=== PATIENT | female | born 1970 | race Caucasian/White ===

== ENCOUNTER 2016-06-02 19:16 | Observation (INO) | payer BC ==
--- NOTE | 2016-06-02 20:20 | EDM.PDOC ---
ED HISTORY OF PRESENT ILLNESS - General Chief Complaint: Syncope Stated Complaint: SYNCOPE WITH IRREGULAR HEART BEAT Time Seen by Provider: 06/02/16 20:19 Source: Reports: Patient, Family History Limitations: Reports: No limitations - History of Present Illness INITIAL COMMENTS - FREE TEXT/NARRATIVE: Both yesterday and todaY THE PT HAS FELT LIKE SHE IS GOING TO PASS OUT AND AT THE SAME TIME SHE FEELS LIKE SHE HAS ALOT OF HEART IRREGULARITIES. Timing/Duration: Reports: Day(s):, Getting worse Severity: moderate Location, General: Reports: chest, other (PT FEELS LIKE SHE IS GOING TO PASS OUT. ) Associated Symptoms: Reports: syncope, other (PT IS HAVING EPISODES OF NEAR SYNCOPE. 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: Neurological History: Reports: Concussion - Infectious Disease History Infectious Disease History: Reports: Chicken pox - Past Surgical History HEENT Surgical History: Reports: Naso-sinus surgery Cardiovascular Surgical History: Reports: None GI Surgical History: Reports: Cholecystectomy Female Surgical History: Reports: Hysterectomy, Tubal ligation, Other (see below) Other Female Surgeries/Procedures: salpinoectomy Social & Family History - Tobacco Use Smoking Status *Q: Current Every Day Smoker Years of Tobacco use: 24 Packs/Tins Daily: 0.5 - Caffeine Use Caffeine Use: Reports: Coffee, Soda - Recreational Drug Use Recreational Drug Use: No ED ROS GENERAL - Review of Systems Review Of Systems: See Below Constitutional: Reports: no symptoms HEENT: Reports: No symptoms Respiratory: Reports: no symptoms Cardiovascular: Reports: Syncope, Other (PT FEELS LIKE HER HEART IS QUITE IRREGULAR. ) Endocrine: Reports: no symptoms GI/Abdominal: Reports: No symptoms : Reports: no symptoms Skin: Reports: no symptoms Neurological: Reports: no symptoms ED EXAM, GENERAL - Physical Exam Exam: See Below Free Text/Narrative:: pT ARRIVED WITH A HISTORY FOR THE PAST 2 DAYS OF NEAR SYNCOPE. sHE ALSO FEELS LIKE HER HEART IS MORE IRRWEGULAR. Exam Limited By: No limitations General Appearance: alert Ears: normal TMs Nose: normal inspection Throat/Mouth: Normal inspection Head: atraumatic Neck: normal inspection Respiratory/Chest: no respiratory distress Cardiovascular: other ( IRREGULAR WITH FREQUENT ECTOPICS. ) GI/Abdominal: soft, non tender, other ( WOUNDS LOOK GREAT. ABDOMAN IS SOFT. ) Rectal (Female) Exam: Deferred Back Exam: normal inspection Extremities: normal inspection Neurological: alert, oriented, normal cognition Course - Vital Signs Last Recorded V/S: Last Vital Signs Temp 35.9 C 06/03/16 16:03 Pulse 58 L 06/03/16 16:03 Resp 16 06/03/16 16:03 BP 124/49 L 06/03/16 16:03 Pulse Ox 100 06/03/16 16:03 Orthostatic Blood Pressure [ 136/81 Standing] Orthostatic Blood Pressure [ 144/89 Sitting] Orthostatic Blood Pressure [ 145/92 Supine] - Orders/Labs/Meds Orders: Active Orders 24 hr Category Date Time Status EKG 12 Lead [EK] Routine Ther 06/02/16 20:18 Stop Req Medication Orders Acetaminophen/Hydrocodone Bitart ([place] 325-5 Mg) 2 tab PO Q4H PRN PRN Reason: Pain (moderate 4-6) Albuterol (Proventil Neb Soln) 2.5 mg NEB Q4H PRN PRN Reason: Shortness Of Breath/wheezing Atenolol (Tenormin) 25 mg PO DAILY [facility] Last Admin: 06/03/16 08:25 Dose: 25 mg Docusate Sodium (Colace) 100 mg PO BID PRN PRN Reason: Constipation Lorazepam (Ativan) 1 mg IV Q6H PRN PRN Reason: Nausea/Vomiting Nicotine (Habitrol) 14 mg TRDERM DAILY [facility] Last Admin: 06/03/16 10:29 Dose: Not Given Admin: 06/02/16 23:32 Dose: 14 mg Ondansetron HCl (Zofran Odt) 4 mg PO Q6H PRN PRN Reason: Nausea able to take PO Zolpidem Tartrate (Ambien) 5 mg PO BEDTIME PRN PRN Reason: Sleep Labs: Laboratory Tests 06/02/16 06/02/16 06/02/16 Range/Units 20:33 20:33 20:33 WBC 10.2 (4.5-11.0) K/uL RBC 4.83 (3.30-5.50) M/uL Hgb 14.1 D (12.0-15.0) g/dL Hct 42.8 (36.0-48.0) % MCV 89 (80-98) fL MCH 29 (27-31) pg MCHC 33 (32-36) % Plt Count 204 (150-400) K/uL Neut % (Auto) 58 (36-66) % Lymph % (Auto) 26 (24-44) % [place] % (Auto) 9 H (2-6) % Eos % (Auto) 5 H (2-4) % Baso % (Auto) 2 H (0-1) % Sodium 142 (140-148) mmol/L Potassium 3.9 (3.6-5.2) mmol/L Chloride 104 (100-108) mmol/L Carbon Dioxide 28 (21-32) mmol/L Anion Gap 9.9 (5.0-14.0) mmol/L BUN 13 (7-18) mg/dL Creatinine 0.8 (0.6-1.0) mg/dL Est Cr Clr Drug Dosing 78.23 mL/min Estimated GFR (MDRD) > 60 (>60) Glucose 94 (74-106) mg/dL Calcium 8.5 (8.5-10.1) mg/dL Magnesium (1.8-2.4) mg/dL Total Bilirubin 0.3 (0.2-1.0) mg/dL AST 14 L (15-37) U/L ALT 33 (12-78) U/L Alkaline Phosphatase 52 (46-116) U/L Creatine Kinase 38 (26-192) U/L Troponin I 0.113 H* (0.000-0.056) ng/mL Total Protein 7.0 (6.4-8.2) g/dL Albumin 3.6 (3.4-5.0) g/dL Globulin 3.4 (2.3-3.5) g/dL Albumin/Globulin Ratio 1.1 L (1.2-2.2) Urine Color Urine Appearance Urine pH (4.5-8.0) Ur Specific [place] (1.008-1.030) Urine Protein (NEGATIVE) mg/dL Urine Glucose (UA) (NEGATIVE) mg/dL Urine Ketones (NEGATIVE) mg/dL Urine Occult Blood (NEGATIVE) Urine Nitrite (NEGATIVE) Urine Bilirubin (NEGATIVE) Urine Urobilinogen (NORMAL) mg/dL Ur Leukocyte Esterase (NEGATIVE) Urine RBC (0-5) Urine WBC (0-5) Ur Epithelial Cells Amorphous Sediment Urine Bacteria Urine Mucus 06/02/16 06/02/16 Range/Units 20:33 20:54 WBC (4.5-11.0) K/uL RBC (3.30-5.50) M/uL Hgb (12.0-15.0) g/dL Hct (36.0-48.0) % MCV (80-98) fL MCH (27-31) pg MCHC (32-36) % Plt Count (150-400) K/uL Neut % (Auto) (36-66) % Lymph % (Auto) (24-44) % [place] % (Auto) (2-6) % Eos % (Auto) (2-4) % Baso % (Auto) (0-1) % Sodium (140-148) mmol/L Potassium (3.6-5.2) mmol/L Chloride (100-108) mmol/L Carbon Dioxide (21-32) mmol/L Anion Gap (5.0-14.0) mmol/L BUN (7-18) mg/dL Creatinine (0.6-1.0) mg/dL Est Cr Clr Drug Dosing mL/min Estimated GFR (MDRD) (>60) Glucose (74-106) mg/dL Calcium (8.5-10.1) mg/dL Magnesium 1.8 (1.8-2.4) mg/dL Total Bilirubin (0.2-1.0) mg/dL AST (15-37) U/L ALT (12-78) U/L Alkaline Phosphatase (46-116) U/L Creatine Kinase (26-192) U/L Troponin I (0.000-0.056) ng/mL Total Protein (6.4-8.2) g/dL Albumin (3.4-5.0) g/dL Globulin (2.3-3.5) g/dL Albumin/Globulin Ratio (1.2-2.2) Urine Color Yellow Urine Appearance Clear Urine pH 6.0 (4.5-8.0) Ur Specific [place] 1.020 (1.008-1.030) Urine Protein Negative (NEGATIVE) mg/dL Urine Glucose (UA) Normal (NEGATIVE) mg/dL Urine Ketones Negative (NEGATIVE) mg/dL Urine Occult Blood Negative (NEGATIVE) Urine Nitrite Negative (NEGATIVE) Urine Bilirubin Negative (NEGATIVE) Urine Urobilinogen Normal (NORMAL) mg/dL Ur Leukocyte Esterase Negative (NEGATIVE) Urine RBC Not seen (0-5) Urine WBC 0-5 (0-5) Ur Epithelial Cells Moderate Amorphous Sediment Not seen Urine Bacteria Few Urine Mucus Few Meds: Medications Generic Name Dose Route Start Last Admin Trade Name Freq PRN Reason Stop Dose Admin Acetaminophen/Hydrocodone Bitart 2 tab 06/02/16 22:58 [place] 325-5 Mg PO Q4H PRN Pain (moderate 4-6) Albuterol 2.5 mg 06/02/16 22:58 Proventil Neb Soln NEB Q4H PRN Shortness Of Breath/wheezing Atenolol 25 mg 06/03/16 09:00 06/03/16 08:25 Tenormin PO 25 mg DAILY MALAIKA Administration Docusate Sodium 100 mg 06/02/16 22:58 Colace PO BID PRN Constipation Lorazepam 1 mg 06/02/16 22:58 Ativan IV Q6H PRN Nausea/Vomiting Nicotine 14 mg 06/02/16 22:58 06/03/16 10:29 Habitrol TRDERM Not Given DAILY MALAIKA Ondansetron HCl 4 mg 06/02/16 22:58 Zofran Odt PO Q6H PRN Nausea able to take PO Zolpidem Tartrate 5 mg 06/02/16 22:58 Ambien PO BEDTIME PRN Sleep Discontinued Medications Generic Name Dose Route Start Last Admin Trade Name Freq PRN Reason Stop Dose Admin Sodium Chloride 1,000 mls @ 125 mls/hr 06/02/16 22:58 06/03/16 08:15 Normal Saline IV 125 mls/hr ASDIRECTED MALAIKA Administration - Re-Assessments/Exams Free Text/Narrative Re-Assessment/Exam: 06/03/16 18:29 pt was found to have a markedly elevated tropon . This was discussed with Dr artis and he admitted her to follow the trops. Departure - Departure Time of Disposition: 16:10 Disposition: Admitted As Inpatient 64 Clinical Impression: Syncope - My Orders Last 24 Hours: My Active Orders 06/02/16 20:18 EKG 12 Lead [EK] Routine - Assessment/Plan Last 24 Hours: My Active Orders 06/02/16 20:18 EKG 12 Lead [EK] Routine
--- NOTE | 2016-06-02 22:25 | PCM.HP ---
H&P History of Present Illness - General Date of Service: 06/02/16 Admit Problem/Dx: Admission Diagnosis/Problem Admission Diagnosis/Problem Near syncope Source of Information: Patient, RN notes reviewed History Limitations: Reports: No limitations - History of Present Illness Initial Comments - Free Text/Narative: near syncope; this is a 45-year-old female presents emergency room with concerns of near fainting at home. She reports yesterday she felt like her heart was fluttering, mild chest pain, felt lightheaded and near fainting. This resolved with rest. She felt better and rest the day. This evening after her evening meal became nauseous again and near fainting. She felt her pulse was 2 beats and skipped a few beats than 4 beats and skipped beats, sweaty, no chest pain or shortness of breath. She did experience nausea with each one of these events without emesis. Labs do show elevated troponin, no other abnormalities noted, EKG obtained. Consulted with internal medicine hospitalist, will plan to admit to hospital observation, serial troponins every 6 hours, telemetry, continue with close observation. Discuss plan of care with Mrs. Burgos who is agreeable to plan of care. Reports no recent febrile illness Post hysterectomy05/21/16, reports no bleeding, discharge, no complications thus far. Primary care provider Dr. Chacon, [place], [place]. Duration of Symptoms: Reports: Day(s):, Recurring Location: Reports: chest, generalized (Near syncopal events x2) Quality: Reports: Same as previous episode Improves with: Reports: Rest Worsens with: Reports: None Associated Symptoms: Reports: nausea/vomiting, syncope, weakness denies pain Pain Score (Numeric/FACES): 0 - Related Data Allergies/Adverse Reactions: Allergies Allergy/AdvReac Type Severity Reaction Status Date / Time aspartame Allergy Headache Verified 06/02/16 19:34 latex Allergy Redness Verified 06/02/16 19:34 MAGANA Allergy Respiratory Uncoded 06/02/16 19:34 Distress Home Medications: Home Meds Atenolol [Atenolol] 25 mg PO DAILY 06/02/16 [History] Cholecalciferol (Vitamin D3) [Vitamin D] 5,000 units PO DAILY 06/02/16 [History] Past Medical History HEENT History: Reports: Impaired vision Cardiovascular History: Reports: Heart murmur, Hypertension 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: Neurological History: Reports: Concussion - Infectious Disease History Infectious Disease History: Reports: Chicken pox - Past Surgical History HEENT Surgical History: Reports: Naso-sinus surgery Cardiovascular Surgical History: Reports: None GI Surgical History: Reports: Cholecystectomy Female Surgical History: Reports: Hysterectomy, Tubal ligation, Other (see below) Other Female Surgeries/Procedures: salpinoectomy Social & Family History - Tobacco Use Smoking Status *Q: Current Every Day Smoker Years of Tobacco use: 24 Packs/Tins Daily: 0.5 - Caffeine Use Caffeine Use: Reports: Coffee, Soda - Recreational Drug Use Recreational Drug Use: No - Living Situation & Occupation Living situation: Reports: Occupation: employed ( to her Momo, lives in [facility]. One child. 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.) H&P Review of Systems - Review of Systems: Review Of Systems: See Below General: Reports: fever, other (Reports sweating after near fainting episode) HEENT: Reports: no symptoms, glasses Pulmonary: Reports: no symptoms Cardiovascular: Reports: palpitations, lightheadedness, syncope Gastrointestinal: Reports: No symptoms Genitourinary: Reports: no symptoms Musculoskeletal: Reports: no symptoms Skin: Reports: dryness Psychiatric: Reports: no symptoms Neurological: Reports: no symptoms Hematologic/Lymphatic: Reports: no symptoms Immunologic: Reports: no symptoms Exam - Exam Exam: See Below - Vital Signs Vital Signs: Last Vital Signs Temp 37.5 C 06/02/16 19:35 Pulse 111 H 06/02/16 19:35 Resp 16 06/02/16 19:35 BP 138/65 06/02/16 19:35 Pulse Ox 94 L 06/02/16 19:35 Orthostatic Blood Pressure [ 136/81 Standing] Orthostatic Blood Pressure [ 144/89 Sitting] Orthostatic Blood Pressure [ 145/92 Supine] Weight: 67.4 kg - Exam General: alert, oriented, 4 HEENT: PERRLA, Hearing intact, Mucosa moist & pink, Nares patent, Normal nasal septum, Posterior pharynx clear, Conjunctiva clear, EOMI, EACs clear, TMs clear Neck: supple, trachea midline, 2 Lungs: Clear to auscultation, Normal respiratory effort Cardiovascular: regular rate, regular rhythm Abdomen: normal bowel sounds, soft (Female) Exam: Deferred Rectal (Female) Exam: Deferred Back Exam: normal inspection, full range of motion Extremities: normal inspection Skin: warm, dry Neurological: normal speech, normal tone, sensation intact Neuro Extensive - Mental Status: alert, oriented x3, normal mood/affect, normal cognition Neuro Extensive - Motor, Sensory, Reflexes: normal gait, normal reflexes Psychiatric: alert, normal affect, normal mood - Patient Data Lab Results last 24 hrs: Laboratory Results - last 24 hr 06/02/16 06/02/16 06/02/16 Range/Units 20:33 20:33 20:33 WBC 10.2 (4.5-11.0) K/uL RBC 4.83 (3.30-5.50) M/uL Hgb 14.1 D (12.0-15.0) g/dL Hct 42.8 (36.0-48.0) % MCV 89 (80-98) fL MCH 29 (27-31) pg MCHC 33 (32-36) % Plt Count 204 (150-400) K/uL Neut % (Auto) 58 (36-66) % Lymph % (Auto) 26 (24-44) % [place] % (Auto) 9 H (2-6) % Eos % (Auto) 5 H (2-4) % Baso % (Auto) 2 H (0-1) % Sodium 142 (140-148) mmol/L Potassium 3.9 (3.6-5.2) mmol/L Chloride 104 (100-108) mmol/L Carbon Dioxide 28 (21-32) mmol/L Anion Gap 9.9 (5.0-14.0) mmol/L BUN 13 (7-18) mg/dL Creatinine 0.8 (0.6-1.0) mg/dL Est Cr Clr Drug Dosing 78.23 mL/min Estimated GFR (MDRD) > 60 (>60) Glucose 94 (74-106) mg/dL Calcium 8.5 (8.5-10.1) mg/dL Magnesium (1.8-2.4) mg/dL Total Bilirubin 0.3 (0.2-1.0) mg/dL AST 14 L (15-37) U/L ALT 33 (12-78) U/L Alkaline Phosphatase 52 (46-116) U/L Creatine Kinase 38 (26-192) U/L Troponin I 0.113 H* (0.000-0.056) ng/mL Total Protein 7.0 (6.4-8.2) g/dL Albumin 3.6 (3.4-5.0) g/dL Globulin 3.4 (2.3-3.5) g/dL Albumin/Globulin Ratio 1.1 L (1.2-2.2) Urine Color Urine Appearance Urine pH (4.5-8.0) Ur Specific [place] (1.008-1.030) Urine Protein (NEGATIVE) mg/dL Urine Glucose (UA) (NEGATIVE) mg/dL Urine Ketones (NEGATIVE) mg/dL Urine Occult Blood (NEGATIVE) Urine Nitrite (NEGATIVE) Urine Bilirubin (NEGATIVE) Urine Urobilinogen (NORMAL) mg/dL Ur Leukocyte Esterase (NEGATIVE) Urine RBC (0-5) Urine WBC (0-5) Ur Epithelial Cells Amorphous Sediment Urine Bacteria Urine Mucus 06/02/16 06/02/16 Range/Units 20:33 20:54 WBC (4.5-11.0) K/uL RBC (3.30-5.50) M/uL Hgb (12.0-15.0) g/dL Hct (36.0-48.0) % MCV (80-98) fL MCH (27-31) pg MCHC (32-36) % Plt Count (150-400) K/uL Neut % (Auto) (36-66) % Lymph % (Auto) (24-44) % [place] % (Auto) (2-6) % Eos % (Auto) (2-4) % Baso % (Auto) (0-1) % Sodium (140-148) mmol/L Potassium (3.6-5.2) mmol/L Chloride (100-108) mmol/L Carbon Dioxide (21-32) mmol/L Anion Gap (5.0-14.0) mmol/L BUN (7-18) mg/dL Creatinine (0.6-1.0) mg/dL Est Cr Clr Drug Dosing mL/min Estimated GFR (MDRD) (>60) Glucose (74-106) mg/dL Calcium (8.5-10.1) mg/dL Magnesium 1.8 (1.8-2.4) mg/dL Total Bilirubin (0.2-1.0) mg/dL AST (15-37) U/L ALT (12-78) U/L Alkaline Phosphatase (46-116) U/L Creatine Kinase (26-192) U/L Troponin I (0.000-0.056) ng/mL Total Protein (6.4-8.2) g/dL Albumin (3.4-5.0) g/dL Globulin (2.3-3.5) g/dL Albumin/Globulin Ratio (1.2-2.2) Urine Color Yellow Urine Appearance Clear Urine pH 6.0 (4.5-8.0) Ur Specific [place] 1.020 (1.008-1.030) Urine Protein Negative (NEGATIVE) mg/dL Urine Glucose (UA) Normal (NEGATIVE) mg/dL Urine Ketones Negative (NEGATIVE) mg/dL Urine Occult Blood Negative (NEGATIVE) Urine Nitrite Negative (NEGATIVE) Urine Bilirubin Negative (NEGATIVE) Urine Urobilinogen Normal (NORMAL) mg/dL Ur Leukocyte Esterase Negative (NEGATIVE) Urine RBC Not seen (0-5) Urine WBC 0-5 (0-5) Ur Epithelial Cells Moderate Amorphous Sediment Not seen Urine Bacteria Few Urine Mucus Few Result Diagrams: 06/03/16 05:11 06/03/16 05:11 EKG INTERPRETATION Rhythm: NSR P-wave: present QRS: normal Comparison: NA - no prior EKG *Q Meaningful Use (ADM) - VTE *Q VTE Criteria *Q: - Stroke *Q Stroke Criteria *Q: - AMI *Q AMI Criteria *Q: - Problem List (1) Syncope, near SNOMED Code(s): 558919571 ICD Code: R55 - SYNCOPE AND COLLAPSE Status: Acute Priority: High Current Visit: Yes (2) Troponin level elevated SNOMED Code(s): 560005678, 480179935 ICD Code: R79.89 - OTHER SPECIFIED ABNORMAL FINDINGS OF BLOOD CHEMISTRY Status: Acute Priority: High Current Visit: Yes (3) History of hysterectomy with oophorectomy SNOMED Code(s): 305114118 ICD Code: Z90.710 - ACQUIRED ABSENCE OF BOTH CERVIX AND UTERUS; Z90.721 - ACQUIRED ABSENCE OF OVARIES, UNILATERAL Status: Acute Priority: High Current Visit: Yes Onset Date: ~05/21/16 (4) Tobacco use SNOMED Code(s): 969682333 ICD Code: Z72.0 - TOBACCO USE Status: Acute Priority: High Current Visit: Yes Problem List Initiated/Reviewed/Updated: Yes Orders Last 24hrs: Active Orders 24 hr Category Date Time Status Patient Status Manage Transfer [TRANSFER] Routine ADT 06/02/16 22:02 Active Cardiac Monitoring [RC] .As Directed Care 06/02/16 22:02 Active EKG Documentation Completion [RC] ASDIRECTED Care 06/02/16 20:18 Active Orthostatic Vital Signs [RC] ASDIRECTED Care 06/02/16 20:19 Active Chest 1V Frontal [CR] Stat Exams 06/02/16 21:14 Taken Resuscitation Status Routine Resus Stat 06/02/16 22:03 Ordered EKG 12 Lead [EK] Routine Ther 06/02/16 20:18 Ordered Assessment/Plan Comment:: near syncope; this is a 45-year-old female presents emergency room with concerns of near fainting at home. She reports yesterday she felt like her heart was fluttering, mild chest pain, felt lightheaded and near fainting. This resolved with rest. She felt better and rest the day. This evening after her evening meal became nauseous again and near fainting. She felt her pulse was 2 beats and skipped a few beats than 4 beats and skipped beats, sweaty, no chest pain or shortness of breath. She did experience nausea with each one of these events without emesis. Labs do show elevated troponin, no other abnormalities noted, EKG obtained. Consulted with internal medicine hospitalist, will plan to admit to hospital observation, serial troponins every 6 hours, telemetry, continue with close observation. Discuss plan of care with Mrs. Burgos who is agreeable to plan of care. Plan: -Troponin lab every 6 hours x2 -IV fluids; normal saline 125ml/hr - telemetry -EKG sinus rhythm with ventricular trigeminy -Reassess in a.m. Maintenance issue -DVT prophylaxis; SCDs -GI prophylaxis: Protonix -Nutrition: Regular diet -Tobacco dependence: Nicotine patch 14 mcg -Hansen catheter not indicated CODE STATUS:FULL Hospital status: Outpatient observation Disposition: Home with Momo Primary care provider Dr. Chacon, [place], [place].
[2016-06-02] MEDS ORDERED: LORazepam 2 MG/ML MDV IV PRN (22:58)
[2016-06-02] MEDS ORDERED: Zolpidem 5 MG Tab PO PRN (22:58)
[2016-06-02] MEDS ORDERED: Acetaminophen/HYDROcodone 325-5 MG Tab PO PRN (22:58)
[2016-06-02] MEDS ORDERED: Ondansetron 4 MG Tab.DIS PO PRN (22:58)
[2016-06-02] MEDS ORDERED: Albuterol 0.083% 2.5 MG/3 ML Neb Soln NEB PRN (22:58)
[2016-06-02] MEDS ORDERED: Docusate Sodium 100 MG Cap PO PRN (22:58)
[2016-06-02] MEDS: Nicotine 14 MG/24 Hr Patch TRDERM SCH (23:32)
[2016-06-03] MEDS: Sodium Chloride 0.9% 1,000 ML IV SCH ×2 (00:24→08:15)
[2016-06-03] MEDS: Atenolol 25 MG Tab PO SCH (08:25)
--- NOTE | 2016-06-03 08:50 | CR ---
Chest 1V Frontal HISTORY: Irregular heartbeat. FINDINGS: Cardiac size and pulmonary vessels are normal. The lungs are clear. IMPRESSION: Negative AP chest.
[2016-06-03] MEDS ORDERED: Atenolol 50 MG Tab PO SCH (09:00)
[2016-06-03] MEDS: Nicotine 14 MG/24 Hr Patch TRDERM SCH (10:29)
--- NOTE | 2016-06-03 12:57 | PCM.PN ---
- General Info Date of Service: 06/03/16 Functional Status: Reports: pain controlled, tolerating diet - Review of Systems Cardiovascular: Reports: chest pain, palpitations Systems Review Comment:: no acute events overnight. Some PVCs noted on cardiac monitoring but no significant dysrhythmias. Troponin level has been mildly elevated but stable since admission. She has not had any chest pain overnight but did have some yesterday. No upset stomach overnight and no presyncope. Appetite has been okay. No fevers. Blood pressures stable. - Patient Data Vitals - most recent: Last Vital Signs Temp 36.3 C 06/03/16 11:07 Pulse 77 06/03/16 11:07 Resp 16 06/03/16 11:07 BP 128/77 06/03/16 11:07 Pulse Ox 98 06/03/16 11:07 Weight - most recent: 67.4 kg I&O - last 24 hours: Intake & Output 06/02/16 06/03/16 06/03/16 22:59 06:59 14:59 Intake Total 1069 980 Output Total 1000 525 Balance 69 455 Lab Results last 24 hrs: Laboratory Results - last 24 hr 06/03/16 06/03/16 06/03/16 Range/Units 02:10 05:11 05:11 WBC 9.7 (4.5-11.0) K/uL RBC 4.56 (3.30-5.50) M/uL Hgb 13.3 (12.0-15.0) g/dL Hct 40.3 (36.0-48.0) % MCV 88 (80-98) fL MCH 29 (27-31) pg MCHC 33 (32-36) % Plt Count 182 (150-400) K/uL Sodium 143 (140-148) mmol/L Potassium 3.8 (3.6-5.2) mmol/L Chloride 107 (100-108) mmol/L Carbon Dioxide 28 (21-32) mmol/L Anion Gap 8.5 (5.0-14.0) mmol/L BUN 11 (7-18) mg/dL Creatinine 0.7 (0.6-1.0) mg/dL Est Cr Clr Drug Dosing 88.44 mL/min Estimated GFR (MDRD) > 60 (>60) Glucose 85 (74-106) mg/dL Calcium 8.2 L (8.5-10.1) mg/dL Troponin I 0.104 H* (0.000-0.056) ng/mL C-Reactive Protein (0.0-0.3) mg/dL 06/03/16 06/03/16 Range/Units 08:12 09:46 WBC (4.5-11.0) K/uL RBC (3.30-5.50) M/uL Hgb (12.0-15.0) g/dL Hct (36.0-48.0) % MCV (80-98) fL MCH (27-31) pg MCHC (32-36) % Plt Count (150-400) K/uL Sodium (140-148) mmol/L Potassium (3.6-5.2) mmol/L Chloride (100-108) mmol/L Carbon Dioxide (21-32) mmol/L Anion Gap (5.0-14.0) mmol/L BUN (7-18) mg/dL Creatinine (0.6-1.0) mg/dL Est Cr Clr Drug Dosing mL/min Estimated GFR (MDRD) (>60) Glucose (74-106) mg/dL Calcium (8.5-10.1) mg/dL Troponin I 0.113 H* (0.000-0.056) ng/mL C-Reactive Protein 0.75 H (0.0-0.3) mg/dL Med Orders - Current: Current Medications Acetaminophen/Hydrocodone Bitart (Park 325-5 Mg) 2 tab PO Q4H PRN PRN Reason: Pain (moderate 4-6) Albuterol (Proventil Neb Soln) 2.5 mg NEB Q4H PRN PRN Reason: Shortness Of Breath/wheezing Atenolol (Tenormin) 25 mg PO DAILY [facility] Last Admin: 06/03/16 08:25 Dose: 25 mg Docusate Sodium (Colace) 100 mg PO BID PRN PRN Reason: Constipation Lorazepam (Ativan) 1 mg IV Q6H PRN PRN Reason: Nausea/Vomiting Nicotine (Habitrol) 14 mg TRDERM DAILY [facility] Last Admin: 06/03/16 10:29 Dose: Not Given Ondansetron HCl (Zofran Odt) 4 mg PO Q6H PRN PRN Reason: Nausea able to take PO Zolpidem Tartrate (Ambien) 5 mg PO BEDTIME PRN PRN Reason: Sleep Discontinued Medications Sodium Chloride (Normal Saline) 1,000 mls @ 125 mls/hr IV ASDIRECTED [facility] Last Admin: 06/03/16 08:15 Dose: 125 mls/hr - Exam Quality Assessment: No: supplemental oxygen General: alert, oriented, cooperative, no acute distress Neck: supple Lungs: Normal respiratory effort Cardiovascular: regular rate, regular rhythm, murmurs (soft joanne LUSB and mild blowing JOANNE at apex) Abdomen: soft, no distension Extremities: no edema, normal pulses - Problem List Review Problem List Initiated/Reviewed/Updated: Yes - My Orders Last 24 Hours: My Active Orders 06/03/16 12:53 Convert IV to Saline Lock [OM.PC] Routine 06/04/16 05:00 TROPONIN I [CHEM] Timed 06/04/16 07:00 Myocardial Perf Spect Multi [NM] Routine - Plan Plan:: Assessment and Plan - Near syncope - etiology not entirely clear, PVCs not frequent enough to cause presyncope. Strong family history of coronary artery disease and she would benefit from additional workup as discussed below. Otherwise hemodynamically stable. Symptoms of presyncope have improved. -Continue cardiac monitoring Elevated troponin - mild elevation without typical symptoms to suggest occlusive coronary artery disease. Strong family history and she is a smoker. Level has been stable. I think that we need to rule out coronary artery disease before pursuing other possible causes. -Troponin the morning -Stress test in the morning Tobacco dependence - she would benefit from ongoing recommendations regarding cessation. Maintenance issue -DVT prophylaxis; SCDs -GI prophylaxis: Protonix -Nutrition: Regular diet -Tobacco dependence: Nicotine patch 14 mcg Hospital status: Outpatient observation Disposition: Home with Momo, hopefully tomorrow after the stress test Arnulfo Hernandez M.D.
[2016-06-04] MEDS: Atenolol 25 MG Tab PO SCH (08:00)
[2016-06-04] MEDS ORDERED: Aminophylline 250 MG/10 ML SDV IVPUSH ONE (09:43)
[2016-06-04] MEDS: Nicotine 14 MG/24 Hr Patch TRDERM SCH (10:43)
--- NOTE | 2016-06-04 13:30 | NM ---
Myocardial Perf Spect Multi HISTORY: Syncope. Technique: 10.2 mCi of technetium 99 Myoview was administered and a resting myocardial perfusion sca n was obtained. Patient was then given IV Lexiscan and 30.7 mCi of technetium 99 Myoview was adminis tered and a pharmacologic stress myocardial perfusion scan was obtained COMPARISON: None FINDINGS: No fixed perfusion abnormalities to suggest prior infarction. No findings to suggest acute ischemia. The gated portion of today's study demonstrates normal left ventricular wall motion. Ejec tion fraction is 66% with rest 61% with stress. Impression: Normal rest and pharmacologic stress myocardial perfusion scan.
--- NOTE | 2016-06-04 14:09 | PCM.DCSUM1 ---
Discharge Summary - Hospital Course Brief History: 46-year-old female with history of tobacco dependence and palpitations who presented with presyncope. She was admitted for observation with a mild troponin elevation. - Discharge Data Discharge Date: 06/04/16 Discharge Disposition: Home, Self-Care 01 Condition: Good - Discharge Diagnosis/Problem(s) (1) Syncope, near SNOMED Code(s): 127136914 ICD Code: R55 - SYNCOPE AND COLLAPSE Status: Acute Priority: High Current Visit: Yes (2) Troponin level elevated SNOMED Code(s): 832315931, 995442091 ICD Code: R79.89 - OTHER SPECIFIED ABNORMAL FINDINGS OF BLOOD CHEMISTRY Status: Acute Priority: High Current Visit: Yes (3) Tobacco use SNOMED Code(s): 219740301 ICD Code: Z72.0 - TOBACCO USE Status: Chronic Priority: High Current Visit: Yes - Patient Summary/Data Hospital Course: Stefanie presented to the emergency room with symptoms of presyncope and palpitations. Workup in the emergency room revealed frequent PVCs on monitoring as well as a very mildly elevated troponin at 0.11. There were no ischemic changes noted on EKG. The patient has not had any chest pain. She was admitted to the hospital for additional observation and workup. Overnight following admission the PVCs persisted. The troponin level remained very mildly elevated but remained essentially stable at 0.10-0.12. This was consistent over 36 hours. The day before discharge we discussed potential interventions versus additional workup. I think the possibility of a pulmonary embolism is extremely low with normal heart rate and oxygen saturations at 98-99 % on room air area hemodynamically she has been completely stable. She has not had any chest pain or pleuritic pain or positional pain make me worry about myocarditis or pericarditis. She does have a strong family history of coronary artery disease and we elected to perform a Lexiscan stress test. Fortunately this was entirely normal and did not show any evidence for ischemia. She feels fairly well and does not have any symptoms of presyncope at this time. We ambulated a significant distance down the huber and back and she did not have any shortness of breath, chest pain or presyncope. I did run the case by Dr. Simmons with [facility]. He felt that this was likely not a lab value to be concerned about, especially with the completely normal stress testing. The exact etiology of this elevation was not entirely clear. I don't believe that she needs additional workup at this time. She may benefit from a repeat test in one or 2 weeks. She will be contacting her primary care physician to set this up. She will return if symptoms do not continue to get better or they get worse. - Patient Instructions Diet: Regular Diet as Tolerated Activity: As Tolerated Showering/Bathing: May Shower Notify Provider of: Fever, Increased Pain, Nausea and/or Vomiting Other/Special Instructions: 1. You were in the hospital for observation after an episode of presyncope. We monitored your heart using telemetry and followed serial troponin levels. You do have a very mild elevation of the troponin that has persisted for more than 36 hours but no evidence for an acute heart issue. The cause for the abnormal blood test was not entirely clear. The stress test was normal. I would recommend a repeat level in one to two weeks to see if this very mild elevation is trending down. 2. Please seek medical attention if you develop chest pain, sudden onset of shortness of breath or have fainting spells. - Discharge Plan Home Medications: Home Meds Atenolol 25 mg PO DAILY 06/02/16 [History] Cholecalciferol (Vitamin D3) [Vitamin D] 5,000 units PO DAILY 06/02/16 [History] Patient Handouts: Palpitations Referrals: Niraj Lee MD [Primary Care Provider] - (f/u as needed if symptoms do not continue improve or worsen) - Discharge Summary/Plan Comment DC Time >30 min.: No (25) - Patient Data Vitals - Most Recent: Last Vital Signs Temp 35.8 C 06/04/16 11:56 Pulse 69 06/04/16 11:56 Resp 16 06/04/16 11:56 BP 109/56 L 06/04/16 11:56 Pulse Ox 100 06/04/16 11:56 Weight - Most Recent: 67.4 kg I&O - Last 24 hours: Intake & Output 06/03/16 06/04/16 06/04/16 22:59 06:59 14:59 Intake Total 716 600 Output Total 1400 1100 1500 Balance -754 1100 900 Lab Results - Last 24 hrs: Laboratory Results - last 24 hr 06/04/16 Range/Units 05:00 Troponin I 0.127 H* (0.000-0.056) ng/mL Med Orders - Current: Current Medications Acetaminophen/Hydrocodone Bitart (Hope 325-5 Mg) 2 tab PO Q4H PRN PRN Reason: Pain (moderate 4-6) Albuterol (Proventil Neb Soln) 2.5 mg NEB Q4H PRN PRN Reason: Shortness Of Breath/wheezing Atenolol (Tenormin) 25 mg PO DAILY [facility] Last Admin: 06/04/16 08:00 Dose: 25 mg Docusate Sodium (Colace) 100 mg PO BID PRN PRN Reason: Constipation Lorazepam (Ativan) 1 mg IV Q6H PRN PRN Reason: Nausea/Vomiting Nicotine (Habitrol) 14 mg TRDERM DAILY [facility] Last Admin: 06/04/16 10:43 Dose: Not Given Ondansetron HCl (Zofran Odt) 4 mg PO Q6H PRN PRN Reason: Nausea able to take PO Zolpidem Tartrate (Ambien) 5 mg PO BEDTIME PRN PRN Reason: Sleep Discontinued Medications Aminophylline (Aminophylline) 125 mg IVPUSH ONETIME ONE Stop: 06/04/16 09:44 Last Admin: 06/04/16 09:46 Dose: 125 mg Sodium Chloride (Normal Saline) 1,000 mls @ 125 mls/hr IV ASDIRECTED [facility] Last Admin: 06/03/16 08:15 Dose: 125 mls/hr Regadenoson (Lexiscan) 0.4 mg IVPUSH ONETIME ONE Stop: 06/04/16 09:16 Last Admin: 06/04/16 09:32 Dose: 0.4 mg *Q Meaningful Use (DIS) - VTE *Q VTE Criteria *Q: - Stroke *Q Stroke Criteria *Q: - AMI *Q AMI Criteria *Q:
[2016-06-04 15:59] VITALS: BP 118/63
--- NOTE | 2016-06-05 00:44 | STRESS ---
DATE OF SERVICE: 06/04/2016 PROPOSED PROCEDURE: Lexiscan stress test. INDICATION FOR STRESS TEST: Elevated troponin and presyncope. REFERRING PHYSICIAN: Arnulfo Hernandez MD. PRIMARY CARE PHYSICIAN: Niraj Lee MD. DESCRIPTION OF PROCEDURE: Stefanie is a 46-year-old female, who presents from an inpatient room for a Lexiscan stress test. Preprocedure, her blood pressure is 109/75, and her pulse is 68. Baseline EKG shows a normal sinus rhythm with a normal axis. RS transition occurs between V2 and V3. She does have a very mild, but diffuse ST-segment elevation at baseline, which is 0.5 mm or less. The stress test is administered per the protocol. Review of the continuous EKG monitoring showed no significant changes in the ST segments or the T-waves during the stress or recovery portion. She did have frequent PVCs noted following injection of the Lexiscan. Heart rate alba from 68 up to 104 at the 1 minute sunil of exercise, and then slowly declined. Blood pressure did dip slightly after injection of the Lexiscan down to 95/70 and then recovered towards baseline. Review of the customer service technician's notes suggest that she had shortness of breath, nausea as well as heaviness in her chest after injection of Lexiscan. These symptoms did improve, but she also developed a headache and continued to feel flushed. She was given 125 mg of aminophylline with complete resolution of symptoms after 7 minutes of recovery. Postprocedure, her blood pressure is 122/72 and her pulse is 69. EKG is at baseline. IMPRESSION: Negative EKG portion of the stress test with no ST-segment changes noted. She did have frequent PVCs in the recovery phase following Lexiscan injection. The nuclear medicine portion will be interpreted separately for additional clinical correlation. Arnulfo Hernandez MD /[id number]
== END 2016-06-04 16:30 | disposition home or self-care (01) ==
LOC: JP.ED 19:16 → JP.2SS 22:02
PROVIDERS: ADMIT Internal Medicine; ATTEND Internal Medicine
DX: R55 Syncope and collapse (principal); R79.89 Other specified abnormal findings of blood chemistry; I10 Essential (primary) hypertension; Z72.0 Tobacco use; Z79.899 Other long term (current) drug therapy; Z91.040 Latex allergy status; Z88.8 Allergy status to other drugs, medicaments and biological substances; Z91.09 Other allergy status, other than to drugs and biological substances; Z90.49 Acquired absence of other specified parts of digestive tract; Z90.710 Acquired absence of both cervix and uterus; Z98.51 Tubal ligation status; Z98.890 Other specified postprocedural states; F17.210 Nicotine dependence, cigarettes, uncomplicated
CPT/HCPCS: 36415; 71010; 78452; 80048; 80053; 81001; 82550; 83735; 84484; 85025; 85027; 86140; 93005; 93017; 96361; 96374; 99285; A9270; A9500; G0378; J2785; J7040

== ENCOUNTER 2020-02-16 16:51 | Emergency (ER) | payer BC ==
[2020-02-16] MEDS ORDERED: Sodium Chloride 0.9% 10 ML Syringe FLUSH PRN (18:18)
--- NOTE | 2020-02-16 18:32 | EDM.PDOC ---
ED HPI GENERAL MEDICAL PROBLEM - General Chief Complaint: ENT Problem Stated Complaint: FACIAL SWELLING Time Seen by Provider: 02/16/20 18:17 - History of Present Illness INITIAL COMMENTS - FREE TEXT/NARRATIVE: Stefanie is a 49-year-old female presenting to the ED for evaluation of left submandibular pain and swelling now extending into the left anterior neck nearly crossing the midline. Stefanie was seen by me last night as a curbside consult for what appeared to be sialoadenitis. She started using lemon drops which decreased the pain and swelling, however, this morning it started to increase again and is now extending down the neck and nearly crossing the midline. She has not had any fever or chills, shortness of breath, but she does find it more difficult to swallow now. She is also experiencing increasing pain. - Related Data Allergies Allergy/AdvReac Type Severity Reaction Status Date / Time aspartame Allergy Headache Verified 02/16/20 18:19 latex Allergy Redness Verified 02/16/20 18:19 MAGANA Allergy Respiratory Uncoded 02/16/20 18:19 Distress Home Meds: Home Meds Cholecalciferol (Vitamin D3) [Vitamin D] 5,000 units PO DAILY 06/02/16 [History] atenoloL [Atenolol] 25 mg PO DAILY 06/02/16 [History] Multivitamin [Multivitamins] 1 tab PO DAILY 02/16/20 [History] Past Medical History HEENT History: Reports: Impaired Vision Cardiovascular History: Reports: Heart Murmur, Hypertension Other Cardiovascular History: near syncope 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: Neurological History: Reports: Concussion - Infectious Disease History Infectious Disease History: Reports: Chicken Pox - Past Surgical History HEENT Surgical History: Reports: Naso-Sinus Surgery GI Surgical History: Reports: Cholecystectomy Female Surgical History: Reports: Hysterectomy, Tubal Ligation, Other (See Below) Social & Family History - Family History Family Medical History: No Pertinent Family History - Tobacco Use Tobacco Use Status *Q: Current Every Day Tobacco User Years of Tobacco use: 29 Packs/Tins Daily: 0.5 - Caffeine Use Caffeine Use: Reports: Coffee - Recreational Drug Use Recreational Drug Use: No - Living Situation & Occupation Living situation: Reports: Occupation: Employed ED ROS ENT - Review of Systems Review Of Systems: See Below Constitutional: Reports: No Symptoms HEENT: Reports: Throat Pain (Left-sided submandibular and neck pain), Throat Swelling (Difficulty with swallowing) Respiratory: Reports: No Symptoms Cardiovascular: Reports: No Symptoms Endocrine: Reports: No Symptoms GI/Abdominal: Reports: No Symptoms : Reports: No Symptoms Musculoskeletal: Reports: No Symptoms Skin: Reports: No Symptoms Neurological: Reports: No Symptoms Psychiatric: Reports: No Symptoms Hematologic/Lymphatic: Reports: No Symptoms Immunologic: Reports: No Symptoms ED EXAM, ENT - Physical Exam Exam: See Below Exam Limited By: No Limitations General Appearance: Alert, WD/WN, Mild Distress Eye Exam: Bilateral Eye: EOMI, PERRL Mouth/Throat: Normal Inspection, Throat Pain, Other (Left-sided submandibular tenderness and swelling). No: Peritonsillar Mass, Throat Swelling, Tongue Swelling, Tonsillar Erythema, Tonsillar Exudates, Tonsillar Swelling Head: Atraumatic, Normocephalic Neck: Supple, Full Range of Motion, Lymphadenopathy (L) Respiratory/Chest: No Respiratory Distress, Lungs Clear, Normal Breath Sounds, N o Accessory Muscle Use Cardiovascular: Normal Peripheral Pulses, Regular Rate, Rhythm, No Edema, No Gallop, No JVD, No Murmur, No Rub Neurological: Alert, Oriented, Normal Cognition, No Motor/Sensory Deficits Skin: Warm, Dry Course - Vital Signs Last Recorded V/S: Last Vital Signs Temp 35.2 C L 02/16/20 18:20 Pulse 69 02/16/20 18:20 Resp 16 02/16/20 18:20 BP 120/61 02/16/20 18:20 Pulse Ox 97 02/16/20 18:20 - Orders/Labs/Meds Orders: Active Orders 24 hr Category Date Time Status Iopamidol [Isovue-300 (61%)] Med 02/16/20 18:45 Active 100 ml IV . DIRECTED Sodium Chloride 0.9% [Normal Saline] 80 ml Med 02/16/20 18:45 Active IV ASDIRECTED Sodium Chloride 0.9% [Saline Flush] Med 02/16/20 18:18 Active 10 ml FLUSH ASDIRECTED PRN cefTRIAXone [Rocephin] 1 gm Med 02/16/20 19:40 Active Sodium Chloride 0.9% [Normal Saline] 50 ml IV ONETIME Saline Lock Insert [OM.PC] Routine Oth 02/16/20 18:18 Ordered Medication Orders Sodium Chloride (Normal Saline) 80 mls @ 3 mls/sec IV ASDIRECTED [facility] Last Admin: 02/16/20 18:58 Dose: 3 mls/sec Documented by: MADISON Ceftriaxone Sodium 1 gm/ (Sodium Chloride) 50 mls @ 100 mls/hr IV ONETIME ONE Stop: 02/16/20 20:09 Iopamidol (Isovue-300 (61%)) 100 ml IV . DIRECTED [facility] Last Admin: 02/16/20 18:58 Dose: 100 ml Documented by: MADISON Sodium Chloride (Saline Flush) 10 ml FLUSH ASDIRECTED PRN PRN Reason: Keep Vein Open Labs: Laboratory Tests 02/16/20 02/16/20 Range/Units 18:35 18:35 WBC 14.9 H (4.5-11.0) K/uL RBC 4.61 (3.30-5.50) M/uL Hgb 13.8 (12.0-15.0) g/dL Hct 43.2 (36.0-48.0) % MCV 94 (80-98) fL MCH 30 (27-31) pg MCHC 32 (32-36) % Plt Count 212 (150-400) K/uL Sodium 141 (140-148) mmol/L Potassium 4.0 (3.6-5.2) mmol/L Chloride 105 (100-108) mmol/L Carbon Dioxide 28 (21-32) mmol/L Anion Gap 8.4 (5.0-14.0) mmol/L BUN 9 (7-18) mg/dL Creatinine 0.8 (0.6-1.0) mg/dL Est Cr Clr Drug Dosing 42.83 mL/min Estimated GFR (MDRD) > 60 (>60) Glucose 98 (74-106) mg/dL Calcium 8.7 (8.5-10.1) mg/dL C-Reactive Protein 6.63 H (0.0-0.3) mg/dL Meds: Medications Generic Name Dose Route Start Last Admin Trade Name Freq PRN Reason Stop Dose Admin Sodium Chloride 80 mls @ 3 mls/sec 02/16/20 18:45 02/16/20 18:58 Normal Saline IV 3 mls/sec ASDIRECTED [facility] Administration Ceftriaxone Sodium 1 gm/ 50 mls @ 100 mls/hr 11/12/20 19:40 Sodium Chloride IV 02/16/20 20:09 ONETIME ONE Iopamidol 100 ml 02/16/20 18:45 02/16/20 18:58 Isovue-300 (61%) IV 100 ml . DIRECTED [facility] Administration Sodium Chloride 10 ml 02/16/20 18:18 Saline Flush FLUSH ASDIRECTED PRN Keep Vein Open Discontinued Medications Generic Name Dose Route Start Last Admin Trade Name Freq PRN Reason Stop Dose Admin Ketorolac Tromethamine 30 mg 02/16/20 19:50 Toradol IVPUSH 02/16/20 19:51 ONETIME ONE - Radiology Interpretation Free Text/Narrative:: CT of the soft tissue neck shows significant sialoadenitis extending down the left anterior neck. We will start the patient on Rocephin 1 g IV and Toradol 30 mg IV for infection and pain control. She has a significant leukocytosis at 14.9 with an elevation of her C-reactive protein at 6.63. We will likely treat this as an outpatient with Toradol 10 mg 4 times daily for pain and swelling as well as Augmentin 875 mg / 125 mg twice daily for 10 days. She can continue to use warm saline gargles, lemon drops, and heating pad to try to relieve some of the swelling. She may also do gentle massage of the area to "milk" the salivary gland. I expect that we should turn this around within 24 to 48 hours on antibiotics. Departure - Departure Time of Disposition: 19:56 Disposition: Home, Self-Care 01 Condition: Good Clinical Impression: Acute sialoadenitis - Discharge Information *PRESCRIPTION DRUG MONITORING PROGRAM REVIEWED*: Not Applicable *COPY OF PRESCRIPTION DRUG MONITORING REPORT IN PATIENT BLADE: Not Applicable Instructions: Salivary Gland Infection Referrals: Niraj Lee MD [Primary Care Provider] - Forms: ED Department Discharge Care Plan Goals: The plan is to treat the infection with Augmentin 875 mg / 125 mg twice daily for 10 days. We will also put you on oral Toradol 10 mg 4 times daily as needed for pain control. You should continue to do saline gargles, gentle massage of the salivary gland, warm compresses, and lemon drops to try to relieve the pressure and tension from the gland. You may have episodes of tasting pus over the next couple of days as this starts to decompress. There is no evidence at this time for an abscess that needs to be drained or a stone that needs to be removed. Please return to the ED should you develop any significant increase in difficulty with swallowing or any impending compromise to your airway. I expect that this will get a little worse before it starts to improve. Sepsis Event Note (ED) - Evaluation Sepsis Screening Result: No Definite Risk - Focused Exam Vital Signs: Vital Signs Temp Pulse Resp BP Pulse Ox 02/16/20 18:20 35.2 C L 69 16 120/61 97 02/16/20 18:08 35.2 C L 69 16 120/61 97 - Problem List & Annotations (1) Acute sialoadenitis SNOMED Code(s): 375940719 Code(s): K11.21 - ACUTE SIALOADENITIS Status: Acute Priority: High Current Visit: Yes - Problem List Review Problem List Initiated/Reviewed/Updated: Yes - My Orders Last 24 Hours: My Active Orders 02/16/20 18:18 Sodium Chloride 0.9% [Saline Flush] 10 ml FLUSH ASDIRECTED PRN Saline Lock Insert [OM.PC] Routine 02/16/20 18:45 Iopamidol [Isovue-300 (61%)] 100 ml IV . DIRECTED Sodium Chloride 0.9% [Normal Saline] 80 ml IV ASDIRECTED 02/16/20 19:40 cefTRIAXone [Rocephin] 1 gm Sodium Chloride 0.9% [Normal Saline] 50 ml IV ONETIME - Assessment/Plan Last 24 Hours: My Active Orders 02/16/20 18:18 Sodium Chloride 0.9% [Saline Flush] 10 ml FLUSH ASDIRECTED PRN Saline Lock Insert [OM.PC] Routine 02/16/20 18:45 Iopamidol [Isovue-300 (61%)] 100 ml IV . DIRECTED Sodium Chloride 0.9% [Normal Saline] 80 ml IV ASDIRECTED 02/16/20 19:40 cefTRIAXone [Rocephin] 1 gm Sodium Chloride 0.9% [Normal Saline] 50 ml IV ONETIME Plan: Augmentin 875 mg / 125 mg twice daily for 10 days to treat the infection. Toradol 10 mg 4 times daily as needed for pain control and to reduce swelling. Should you develop any worsening of your ability to swallow or shortness of breath related to the swelling please return to the ED for evaluation.
[2020-02-16] MEDS ORDERED: Sodium Chloride 0.9% 80 ML IV SCH (18:45)
[2020-02-16] MEDS ORDERED: Iopamidol 612 MG/ML 100 ML Bottle IV SCH (18:45)
--- NOTE | 2020-02-16 19:29 | CRLCT ---
INDICATION: left submandibular and neck swelling tenderness CT NECK WITH CONTRAST TECHNIQUE: Axial multidetector CT imaging was performed through the neck following intravenous contrast administration using 100 mL Isovue-300. Coronal and sagittal reconstructions were generated. FINDINGS: The left submandibular gland is slightly enlarged, has indistinct margins, and shows adjacent fat stranding as well as slight thickening of the overlying platysma, consistent with left-sided submandibular sialoadenitis. There is no fluid collection suggestive of an abscess. No calcified sialoliths are noted. There are a few slightly enlarged left submandibular lymph nodes and a slightly enlarged left jugulodigastric node, which are likely reactive. The included airway is within normal limits. The parotid, right submandibular, and thyroid glands are unremarkable aside from a couple of small subcentimeter hypodense nodules within the right thyroid lobe. There are mild bilateral carotid atherosclerotic calcifications. Incidentally noted is aberrant origin of the right subclavian artery, a developmental variant. Osseous structures show no significant findings aside from degenerative disc disease at C5-6. Included skull base and lung apices are unremarkable. IMPRESSION: Left-sided submandibular sialoadenitis. No evidence of abscess. Mildly enlarged left submandibular and jugulodigastric nodes are likely reactive. LUCIUS OMALLEY MD [facility] Dictated by Lonnie Omalley MD @ 02/16/2020 7:26:32 PM Dictated by: Lonnie Omalley MD @ 02/16/2020 19:28:43 (Electronically Signed)
[2020-02-16] MEDS ORDERED: cefTRIAXone 1 GM in Sodium Chloride 0.9% 50 ML IV ONE (19:40)
[2020-02-16] MEDS ORDERED: Ketorolac 30 MG/ML SDV IVPUSH ONE (19:50)
[2020-02-16 20:13] VITALS: BP 140/79; PULSE 74
== END 2020-02-16 20:45 | disposition home or self-care (01) ==
LOC: JP.ED 16:51
DX: K11.20 Sialoadenitis, unspecified (principal); I10 Essential (primary) hypertension; F17.210 Nicotine dependence, cigarettes, uncomplicated; Z88.8 Allergy status to other drugs, medicaments and biological substances; Z91.040 Latex allergy status; Z91.048 Other nonmedicinal substance allergy status
CPT/HCPCS: 36415; 70491; 80048; 85027; 86140; 96365; 96375; 99284-25; J0696; J1885; J7050; Q9967

== ENCOUNTER 2022-12-10 05:53 | Day surgery (SDC) | payer BC ==
[2022-12-10 06:17] LABS: HEMATOCRIT 43.5 % (34.3-46.0); HEMOGLOBIN 14.2 g/dL (11.2-15.5); MEAN CORPUSCULAR HEMOGLOBIN 31.3 pg (31.6-35.5); MEAN CORPUSCULAR HGB CONC 32.6 g/dL (31.6-35.5); RED BLOOD CELL COUNT 4.53 M/uL (3.77-5.24); WHITE BLOOD CELL COUNT,WBC 9.5 K/uL (3.2-11.0)
[2022-12-10 06:37] LABS: A/G RATIO 1.1 (1.2-2.2); ALANINE AMINOTRANSFERASE,ALT 23 U/L (12-78); ALBUMIN 3.6 g/dL (3.4-5.0); ALKALINE PHOSPHATASE 78 U/L (46-116); ANION GAP 8.6 mmol/L (5.0-14.0); ASPARTATE AMNIOTRANSFERASE,AST 12 U/L (15-37); BILIRUBIN TOTAL 0.5 mg/dL (0.2-1.0); BLOOD UREA NITROGEN,BUN 12 mg/dL (7-18); CALCIUM 8.4 mg/dL (8.5-10.1); CARBON DIOXIDE,CO2 29 mmol/L (21-32); CHLORIDE,CL 104 mmol/L (100-108); CREATININE 0.8 mg/dL (0.6-1.0); EST CRCL DRUG DOSING (CG) 72.34 mL/min; ESTIMATED GFR 88 mL/min (>60); GLUCOSE RANDOM 95 mg/dL (74-106); POTASSIUM,K 4.1 mmol/L (3.6-5.2); PROTEIN TOTAL,TP 6.8 g/dL (6.4-8.2); SODIUM,NA 142 mmol/L (140-148)
[2022-12-10] MEDS ORDERED: Lactated Ringers 1,000 ML IV SCH (07:00)
[2022-12-10] MEDS ORDERED: Bupivacaine 0.5% 50 ML MDV ONE (07:09)
[2022-12-10] MEDS ORDERED: fentaNYL 250 MCG/5 ML SDV ONE (07:22)
[2022-12-10] MEDS ORDERED: Ondansetron 4 MG/2 ML SDV ONE (07:22)
[2022-12-10] MEDS ORDERED: Glycopyrrolate 0.2 MG/ML 5 ML MDV ONE (07:22)
[2022-12-10] MEDS ORDERED: Neostigmine Methylsulfate 1 MG/ML 5 ML Syringe ONE (07:22)
[2022-12-10] MEDS ORDERED: Dexamethasone 4 MG/ML SDV ONE (07:22)
[2022-12-10] MEDS ORDERED: Rocuronium 50 MG/5 ML Vial ONE ×2 (07:22→09:19)
[2022-12-10] MEDS ORDERED: Propofol 200 MG/20 ML SDV ONE (07:22)
[2022-12-10] MEDS ORDERED: ceFAZolin 2 GM in Premix Bag 1 BAG IV ONE (08:00)
[2022-12-10] MEDS ORDERED: fentaNYL 100 MCG/2 ML SDV ONE (09:32)
[2022-12-10] MEDS ORDERED: Morphine 2 MG/ML SYRINGE IVPUSH ONE (10:50)
[2022-12-10] MEDS ORDERED: Acetaminophen/oxyCODONE 325-5 MG Tab PO PRN (11:09)
[2022-12-10] MEDS ORDERED: Ketorolac 30 MG/ML SDV IM ONE (11:31)
[2022-12-10 12:17] VITALS: BP 128/73; PULSE 65
== END 2022-12-10 13:18 | disposition home or self-care (01) ==
LOC: JP.SDS 05:53
PROVIDERS: ATTEND Specialist
DX: S73.101A Unspecified sprain of right hip, initial encounter (principal); S76.011A Strain of muscle, fascia and tendon of right hip, initial encounter; M24.151 Other articular cartilage disorders, right hip; I10 Essential (primary) hypertension; I07.1 Rheumatic tricuspid insufficiency; F17.200 Nicotine dependence, unspecified, uncomplicated; Z88.8 Allergy status to other drugs, medicaments and biological substances; Z91.040 Latex allergy status
CPT/HCPCS: 27299; 29862; 36415; 76000; 80053; 85027; A9270; C1769; J0690; J1100; J1885; J2270; J2405; J2704; J2710; J3010; J3490; J7120